=== PATIENT | female | born 1950 | race Caucasian/White ===

== ENCOUNTER 2018-04-01 08:17 | Inpatient (IN) | payer BC, MEDICARE, OTHER ==
[2018-03-26 10:08] LABS: HEMATOCRIT 42.6 % (36.0-47.0); HEMOGLOBIN 14.4 g/dL (12.0-15.5); MEAN CORPUSCULAR HEMOGLOBIN 29.1 pg (27.0-33.4); MEAN CORPUSCULAR HGB CONC 33.8 g/dL (32.0-36.0); MEAN CORPUSCULAR VOLUME 86 fl (80-97); PLATELET COUNT 236 10^3/uL (150-450); RED BLOOD COUNT 4.96 10^6/uL (3.72-5.28); RED CELL DISTRIBUTION WIDTH 12.8 % (11.5-14.0); WHITE BLOOD COUNT 7.1 10^3/uL (4.0-10.5)
--- NOTE | 2018-03-26 10:18 | RADIOLOGY REPORT (SQ) ---
EXAM DESCRIPTION: CHEST PA/LATERAL COMPLETED DATE/TIME: 03/26/2018 10:10 am REASON FOR STUDY: PRE OP COMPARISON: Chest film 11/18/2013 EXAM PARAMETERS: NUMBER OF VIEWS: two views TECHNIQUE: Digital Frontal and Lateral radiographic views of the chest acquired. RADIATION DOSE: NA LIMITATIONS: none FINDINGS: LUNGS AND PLEURA: No opacities, masses or pneumothorax. No pleural effusion. MEDIASTINUM AND HILAR STRUCTURES: No masses or contour abnormalities. HEART AND VASCULAR STRUCTURES: Heart normal size. No evidence for failure. BONES: Osteopenic HARDWARE: None in the chest. OTHER: No other significant finding. IMPRESSION: NO SIGNIFICANT RADIOGRAPHIC FINDING IN THE CHEST. TECHNICAL DOCUMENTATION: JOB ID: [id number] [employer]- All Rights Reserved Reading location - IP/workstation name: [facility]-[email or web address]
[2018-03-26 10:21] LABS: APPEARANCE,URINE CLEAR; BILIRUBIN,URINE NEGATIVE (NEGATIVE); COLOR,URINE YELLOW; GLUCOSE, URINE NEGATIVE (NEGATIVE); KETONES,URINE NEGATIVE (NEGATIVE); LEUKOCYTE ESTERASE,URINE NEGATIVE (NEGATIVE); NITRITE,URINE NEGATIVE (NEGATIVE); PROTEIN,URINE NEGATIVE (NEGATIVE); URINE SPECIFIC GRAVITY 1.013; UROBILINOGEN,URINE NEGATIVE mg/dL (<2.0)
[2018-03-26 10:40] LABS: ALANINE AMINOTRANSFERASE 29 U/L (9-52); ALBUMIN 4.3 g/dL (3.5-5.0); ALKALINE PHOSPHATASE 110 U/L (38-126); ANION GAP 8 (5-19); ASPARTATE AMINO TRANSFERASE 20 U/L (14-36); BILIRUBIN,DIRECT 0.3 mg/dL (0.0-0.4); BILIRUBIN,TOTAL 0.3 mg/dL (0.2-1.3); BLOOD UREA NITROGEN 12 mg/dL (7-20); CARBON DIOXIDE 31 mmol/L (22-30); CHLORIDE 104 mmol/L (98-107); GLUCOSE 94 mg/dL (75-110); POTASSIUM 4.5 mmol/L (3.6-5.0); SODIUM 143.3 mmol/L (137-145); TOTAL PROTEIN 6.7 g/dL (6.3-8.2)
--- NOTE | 2018-03-26 11:05 | EKG REPORT ---
SEVERITY:- NORMAL ECG - SINUS RHYTHM : Confirmed by: Kali Turpin 26-Mar-2018 11:05:05
[~2018-04-01 08:17] MED LIST: CEFAZOLIN 1 GM/D5W RTU 1 GM/50 ML RTUPB IV PRN; DEXAMETHASONE SOD PHOSPHATE INJ 4 MG/1 ML VIAL ONE; GLYCOPYRROLATE INJ 0.4 MG/2 ML VIAL ONE; LACTATED RINGERS 1000 ML IV PRN; LIDOCAINE 0.5% INJ-PF (5 MG/ML) 50 ML SDV SUBCUT PRN; MAGNESIUM CITRATE 296 ML BOTTLE PO ONE; NEOSTIGMINE METHYLSULFATE 10 MG/10 ML VIAL ONE; ONDANSETRON HCL INJ/PF 4 MG/2 ML SDV ONE; ROCURONIUM BROMIDE INJ 50 MG/5 ML VIAL IV ONE; SUCCINYLCHOLINE CHLORIDE INJ 200 MG/10 ML VIAL ONE
[2018-04-01] MEDS ORDERED: LIDOCAINE 1%/EPINEPHRINE INJ 20 ML VIAL ONE (08:52)
[2018-04-01] MEDS ORDERED: BUPIVACAINE HCL 0.25% /EPINEPHRINE INJ/PF 30 ML SDV ONE (08:52)
[2018-04-01] MEDS ORDERED: PROPOFOL INJ 200 MG/20 ML VIAL IV ONE (09:15)
[2018-04-01] MEDS ORDERED: FENTANYL CITRATE INJ/PF 250 MCG/5 ML AMPULE ONE (09:15)
[2018-04-01] MEDS ORDERED: ACETAMINOPHEN 100 ML IV ONE ×2 (09:15→17:30)
[2018-04-01] MEDS ORDERED: EPHEDRINE SULFATE INJ 50 MG/1 ML AMPULE ONE (09:15)
[2018-04-01] MEDS ORDERED: MIDAZOLAM 2 MG/2 ML INJ ONE (09:15)
[2018-04-01] MEDS ORDERED: HYDROMORPHONE HCL INJ/PF 2 MG/ML AMPULE ONE (09:16)
[2018-04-01] MEDS ORDERED: ESTROGENS,CONJUGATED 0.625 MG/1 GM 30 GM TUBE PV ONE (10:00)
[2018-04-01] MEDS ORDERED: PROMETHAZINE HCL INJ 25 MG/1 ML VIAL IV PRN ×2 (11:03)
[2018-04-01] MEDS ORDERED: FENTANYL CITRATE INJ/PF 100 MCG/2 ML AMPUL IV PRN ×3 (11:03)
[2018-04-01] MEDS ORDERED: MEPERIDINE HCL/PF INJ 25 MG/1 ML DISP.SYRIN IV PRN (11:03)
[2018-04-01] MEDS ORDERED: ONDANSETRON HCL INJ/PF 4 MG/2 ML SDV IV PRN (11:03)
[2018-04-01] MEDS ORDERED: DIPHENHYDRAMINE HCL 50 MG/ML VIAL IV PRN (11:03)
--- NOTE | 2018-04-01 13:15 | OPERATIVE REPORT E ---
Operative Report NAME: JEANA JHA : 1950 AGE: 67Y DATE OF SURGERY: 04/01/2018 ROOM: OR PREOPERATIVE DIAGNOSIS: Uterovaginal prolapse. POSTOPERATIVE DIAGNOSIS: Uterovaginal prolapse. SURGEON: SERGIO HAMMER M.D. ANESTHESIOLOGIST: SARAH BETH DICKENS M.D. ANESTHESIA: General. FINDINGS: Small uterus with a grade 3 uterovaginal prolapse. Unable to safely visualize the ovaries and fallopian tubes from a vaginal approach. COMPLICATIONS: None. ESTIMATED BLOOD LOSS: 100 mL. SPECIMENS REMOVED: Uterus and cervix. PROCEDURE: Transvaginal hysterectomy with anterior and posterior repair. PROCEDURE IN DETAIL: The patient was taken to the operating room, prepared and draped in a normal sterile fashion in the dorsal lithotomy position. Under sterile conditions, a Jose catheter was placed at gravity. A sterile speculum was placed into the vagina and the anterior lip of the cervix was grasped with a single-tooth tenaculum. The Hulka clamp was placed through the cervix for uterine manipulation. Gloves were changed and attention was turned to the upper portion of the case, where an umbilical skin incision was made. Difficulty with pneumoperitoneum at the time, and then we did have trouble with the laparoscopic monitors coming on and I was unable to enter the peritoneal cavity safely. I made the decision at this point, to attempt the procedure vaginally. As the main reason for the laparoscopic-assisted portion was to safely visualize the IP ligament and remove the ovaries and fallopian tubes; however, the patient's main trouble prior to surgery was complaint of uterovaginal prolapse, so again sat below and placed a weighted speculum into the vaginal. I removed the Hulka clamp and I placed a single-tooth tenaculum on the anterior lip of the cervix. I then injected the cervix with approximately 20 mL of bupivacaine 2% with epi and massaged this into the mucosa. I then scored the cervix in a circumferential manner using a 10 blade. I then dissected the vaginal mucosa away from the uterus and entered the anterior peritoneum sharply with Woodard's. I placed a Vadim retractor underneath the bladder to hold the bladder away. I then entered the posterior cul-de-sac sharply with Woodard's and placed a deep weighted speculum in this defect. I then cut and suture ligated the uterosacral ligaments with 0-Vicryl and tagged these with a hemostat. I then proceeded to coagulate and transect the uterine arteries bilaterally using the LigaSure. At the fundus of the uterus, I saw that it was difficult to visualize the fallopian tube and ovary. I did try to grasp the fallopian tube with Providence, but due to concerns of tearing the tissue and shear effect, I abandoned this and decided to leave the ovaries and fallopian tubes in place. As this was not a necessary portion of the procedure and would be done simply for preventive effect, I felt that the safe thing to do was to simply leave the ovaries and fallopian tubes in place. I then transected the uterine fundus on both sides using LigaSure and removed the uterus and cervix. I then placed a short weighted speculum back into the vagina and adjusted the Molalla blade for visualization of the vaginal mucosa. I then closed the vaginal cuff using 0-Vicryl in a running, locked manner. Incorporating the uterosacral stitches into the closure. I then began with an anterior repair and injected the anterior mucosa approximately 1.5 cm below the urethra with the bupivacaine, I then dissected the vaginal mucosa away from the bladder sharply with Metzenbaum as well as with blunt dissection using a Ray-Lisa until I was able to get enough room for good support sutures, which I then placed with 0-Ethibond. I placed 3 underneath the bladder to help with help with bladder support. I then trimmed the excess vaginal mucosa away and closed the vaginal mucosa using 4-0 Vicryl. On the posterior aspect, I again injected bupivacaine vertically up to the level of the cuff closure and dissected the posterior mucosa away from the rectocele until I was able to place support sutures. I created a wedge at the Introitus for further support as well and dissected this mucosa away. I then placed 3 support sutures of 0-Ethibond and tucking the rectocele into the posterior tissue. Once this was completed, I trimmed away the excess material on the posterior mucosa and closed the posterior mucosa using 4-0 Vicryl. The patient tolerated the procedure well. Sponge, lap, and needle counts were correct x2 and the patient was taken to recovery in stable condition after the vagina was packed with Premarin cream. DICTATING PHYSICIAN: SERGIO HAMMER M.D. [id number] PHY#: [id number] ID: [id number] JOB#: [id number] ACCT: [id number] cc:SERGIO HAMMER M.D. >
[2018-04-01] MEDS ORDERED: IBUPROFEN 800 MG TABLET PO PRN (13:17)
[2018-04-01] MEDS ORDERED: OXYCODONE-ACETAMINOPHEN 5-325 MG TABLET PO PRN (13:18)
[2018-04-01] MEDS: RINGERS SOLUTION,LACTATED 1,000 ML IV PRN ×2 (13:40→22:03)
[2018-04-01] MEDS ORDERED: KETOROLAC TROMETHAMINE INJ/PF 30 MG/1 ML SDV IV SCH (14:00)
[2018-04-02] MEDS: HYDROMORPHONE HCL INJ/PF 2 MG/ML AMPULE IV PRN ×2 (03:52→09:25)
[2018-04-02] MEDS: RINGERS SOLUTION,LACTATED 1,000 ML IV PRN ×2 (05:13→06:35)
[2018-04-02 05:45] LABS: HEMATOCRIT 35.7 % (36.0-47.0); MEAN CORPUSCULAR HEMOGLOBIN 29.1 pg (27.0-33.4); MEAN CORPUSCULAR HGB CONC 33.5 g/dL (32.0-36.0); MEAN CORPUSCULAR VOLUME 87 fl (80-97); PLATELET COUNT 181 10^3/uL (150-450); RED BLOOD COUNT 4.11 10^6/uL (3.72-5.28); RED CELL DISTRIBUTION WIDTH 13.1 % (11.5-14.0); WHITE BLOOD COUNT 10.6 10^3/uL (4.0-10.5)
--- NOTE | 2018-04-02 14:36 | PDOC DISCHARGE SUMMARY ---
General - Admit/Disc Date/PCP Admission Date/Primary Care Provider: 04/01/18 08:17 EDUARDO GOMEZ MD Discharge Date: 04/02/18 - Additional Information Home Medications: Docusate Sodium [Stool Softener] 100 mg PO DAILY 03/26/18 Omeprazole 40 mg PO DAILY 03/26/18 History of Present Illness History of Present Illness: JEANA JHA is a 67 year old female Hospital Course Hospital Course: s/p TVH w/ A&P repair. Is now voiding and had one episode of vomiting. Nausea has resolved and she has been tolerating some po. Physical Exam - Physical Exam Vital Signs: Temp Pulse Resp BP Pulse Ox 98.1 F 66 20 125/51 L 92 04/02/18 10:40 04/02/18 10:40 04/02/18 10:40 04/02/18 10:40 04/02/18 10:40 Intake & Output 04/01/18 04/02/18 04/03/18 06:59 06:59 06:59 Intake Total 3991 840 Output Total 1875 825 Balance 2116 15 General appearance: PRESENT: no acute distress, cooperative, well-nourished GI/Abdominal exam: PRESENT: soft, tenderness - appropriate for post op period Result Laboratory Results: 04/02/18 05:30 03/26/18 09:25 04/02/18 05:30 WBC 10.6 H RBC 4.11 Hgb 12.0 Hct 35.7 L MCV 87 MCH 29.1 MCHC 33.5 RDW 13.1 Plt Count 181 Impressions: Chest X-Ray 03/26/18 10:04 IMPRESSION: NO SIGNIFICANT RADIOGRAPHIC FINDING IN THE CHEST. Plan Discharge Plan: discharge home with strict instructions. reviewed with Patient and her granddaughter. Time Spent: Less than 30 Minutes
[2018-04-02] MEDS ORDERED: ONDANSETRON 4 MG TAB.RAPDIS ONE (14:55)
[2018-04-02 15:42] VITALS: BP 149/56
== END 2018-04-02 16:10 | disposition home or self-care (01) | DRG 743 ==
LOC: INOR 08:17 → 2N 13:17
PROVIDERS: ADMIT Obstetrics & Gynecology; ATTEND Obstetrics & Gynecology
PROC: 0USG7ZZ Reposition Vagina, Via Natural or Artificial Opening (ICD-10-PCS; 2018-04-01)
PROC: 0JQC3ZZ Repair Pelvic Region Subcutaneous Tissue and Fascia, Percutaneous Approach (ICD-10-PCS; 2018-04-01)
PROC: 0UT97ZZ Resection of Uterus, Via Natural or Artificial Opening (ICD-10-PCS; principal; 2018-04-01 10:15)
PROC: 0UTC7ZZ Resection of Cervix, Via Natural or Artificial Opening (ICD-10-PCS; 2018-04-01 10:15)
DX: N81.3 Complete uterovaginal prolapse (principal); F17.210 Nicotine dependence, cigarettes, uncomplicated
CPT/HCPCS: 36415; 71046; 80053; 81001; 840; 85027; 86850; 86900; 86901; 88305; 93005; 93010; J0131; J0330; J0690; J1100; J1170; J2250; J2405; J2704; J3010; J3490; J7120; S0119